=== PATIENT | male | born 1950 | race Caucasian/White ===

== ENCOUNTER 2024-02-05 12:31 | Emergency (ER) | payer BC, SELFPAY ==
[2024-02-05 12:31] VITALS: BMI 29.7
[2024-02-05 12:37] VITALS: BP 103/75
--- NOTE | 2024-02-05 14:22 | ED.GENMED ---
History of Present Illness
General
Chief Complaint: Male Genito-Urinary Symptoms
Source: patient
Exam Limitations: none
Time Seen by Provider: 02/05/24 14:09
Nursing documentation reviewed up to this point in time: agreed with
Travel History
Have you had any contact with someone who has COVID-19?: No
Do you have any symptoms of coronavirus? Fever > 100 degrees, chills, cough, shortness of breath, sore throat, loss of taste or smell, muscle aches, or headache?: No
History of Present Illness
History of Present Illness:
Patient is a 73-year-old male with past medical history of enlarged prostate, urinary retention hypertension presents to the ER for hematuria. Patient was out of town on Saturday, 4 days ago and had urinary retention went to a local ER and had a
catheter inserted. He saw urology nurse today at Dr. Carvalho office and had the David catheter removed. He urinated at 11 AM however he simply had blood and large blood clots. Since then he has been dripping blood. Urology, Dr. Robles did send
a note via [place] text requesting either an 18 or 20 Hungarian coud� and irrigation.
reports pt is very prone to UTI and had confusion with last episode.
Pt denies any associated fever/chills.
Patient denies any back pain nausea vomiting. He is on blood thinners.
Past History
Past History
ED Past Medical History: Other (Hypertension, hyperlipidemia, depression)
Social History
Tobacco: Non-smoker
Alcohol: Occasional
Family History
Family History: Other (History of cardiomyopathy)
Review of Systems
Review of Systems
Allergies reviewed?: Yes
All Other Systems: ROS reviewed and negative except as documented in HPI and ROS
Constitutional: Reports no symptoms; Denies fever, fatigue or chills
EENT: Reports no symptoms
Respiratory: Reports no symptoms
ABD/GI: Reports no symptoms; Denies abdominal pain, nausea or vomiting
: Reports other (hematuria )
Musculoskeletal: Reports no symptoms
Skin: Reports no symptoms
Neurological: Reports no symptoms
Psychiatric: Reports no symptoms
Phy Exam
General Physical Exam
General Presentation: no apparent distress
General age: appears stated age
General Skin: warm and dry
General Habitus: normal
General Mental: alert
General Hydration: appears well hydrated
Gastrointestinal Exam
Gastrointestinal Exam: non tender, soft and other (no suprapubic tenderness )
Neurological Exam
Neurological Exam: alert and oriented x3
Musculoskeletal Exam
Musculoskeletal Exam: full ROM
Skin Exam
Skin Exam: normal color and warm/dry
Psychiatric Exam
Psychiatric Exam: normal mood/affect
Course
Orders/Labs/Results
Orders:
Orders
02/05/24 14:21
Bladder Scan- Treatment ONCE
David Placement- Treatment ONCE
Reason for insertion: Acute Retention
02/05/24 14:28
Complete Blood Count/With Diff Urgent
Comprehensive Metabolic Panel Stat
02/05/24 15:20
Sulfamethox./Trimethoprim Ds [Bactrim Ds 800 mg/160 mg] 1 tablet PO NOW STA
02/05/24 15:23
UA Reflex to Culture [Urinalysis Reflex To Culture] Urgent
Date Specimen was Collected: 02/05/24
Time Specimen was Collected: 15:16
Urine Microscopic Reflex Cult Urgent
Abnormal Lab Results
02/05/24 02/05/24
14:28 15:23
Lymphocytes % 20.3 L %
(20.5-51.1)
Glucose 108 H mg/dl
(70-99)
Ur Occult Blood Reflex 4+ A
(Negative)
Urine Glucose Trace A
(Negative)
02/05/24 14:28
02/05/24 14:28
Vital Signs
Initial and Last Documented VS:
Initial Vital Signs
Temp Pulse Resp BP Pulse Ox
97.8 F 103 20 103/75 95
02/05/24 12:37 02/05/24 12:37 02/05/24 12:37 02/05/24 12:37 02/05/24 12:37
Last Documented Vital Signs
Temp Pulse Resp BP Pulse Ox
97.8 F 79 18 152/83 98
02/05/24 12:37 02/05/24 15:55 02/05/24 15:55 02/05/24 15:55 02/05/24 15:55
MDM/Problems Addressed
Differential Diagnosis Includes:
not limited to: hematuria UTI
MDM/Problems Addressed:
Patient is a 73-year-old male sent by urology for evaluation of hematuria since having David catheter removed this morning at urology office. As discussed with Dr. Robles he requested a coud� catheter either an 18 or 20 which was inserted by nurse
draining clear yellow urine. Patient with no obvious clots here in the ER or hematuria noted in the David bag he is afebrile no acute distress normal white count normal kidney function. Patient has had multiple UTIs in the past and with David
catheter changes and high risk infection as discussed with urology will DC on Bactrim. Patient is due to have cystoscopy on Saturday in 2 days in the office. Urology will plan to scope him and then replace David catheter plan is for prostate surgery
in the next 1 to 2 weeks if available
Chronic conditions affecting care:
frequent UTI
*Pulse Oximetry
Patient hypoxic: no
*Critical Care Note
Total Time (30-74mins, 75-104mins- exclusive of procedures): Not Applicable
ED Attending Note
-
Portions of this chart may have been created with voice recognition software.� Occasional wrong word or��sound alike� substitutions may have occurred due to the inherent limitations of voice recognition software.
Discharge Plan
Departure
Patient Disposition: Home (Routine Discharge)
Date of Disposition: 02/05/24
Time of Disposition: 16:23
Patient with high blood pressure during this ER visit?: Yes
Condition: Fair
Covid-19: Not Applicable
Discharge Problem:
Hematuria
Instructions: How to Care for Your David Catheter, Male, Blood in the Urine (Hematuria), Adult (DC)
Prescriptions:
New
sulfamethoxazole-trimethoprim [Bactrim DS] 800-160 mg tablet
1 tab PO Q12H Qty: 20 0RF
No Action
tamsulosin 0.4 MG capsule
0.4 mg PO DAILY Qty: 15 0RF
sulfamethoxazole-trimethoprim 1 TABLET tablet
1 tab PO BID Qty: 10 0RF
Referrals:
Rajesh Robles MD [Active] -
Larry Hawkins MD [Family Provider] -
Activity Restrictions/Additional Instructions:
As discussed a prescription for Bactrim was sent to your pharmacy take as directed once every 12 hours for the next 10 days. Follow-up with urology Dr. Robles as scheduled on Saturday for your cystoscopy and return of any worsening of symptoms
including blood in David catheter, abdominal pain nausea vomiting fever chills back pain.
Interventions
Interventions:
*Risk Screen - Suicide Last Done: 02/05/24 12:37
*General Assessment Last Done: 02/05/24 12:37
*Neglect/Abuse Screening Last Done: 02/05/24 12:37
ED- Fall Risk Assessment Last Done: 02/05/24 15:55
ED-Male Genitourinary Assessment Last Done: 02/05/24 14:34
Discharge Date and Time
Print Language: KHMER
[2024-02-05 14:35] LABS: % Basophils 0.8 % (0-2); % Eosinophils 1.1 % (0-6); % Immature Granulocytes 0.2 % (0-0.5); % Lymphocytes 20.3 % (20.5-51.1); % Monocytes 6.9 % (1.7-9.3); % Neutrophils 70.7 % (42.2-75.2); Absolute Basophils 0.1 10^3/uL (0-0.2); Absolute Eosinophils 0.1 10^3/uL (0-0.7); Absolute Lymphocytes 1.3 10^3/uL (1.2-3.4); Absolute Monocytes 0.4 10^3/uL (0.1-0.6); Absolute Neutrophils 4.5 10^3/uL (1.4-6.5); Hematocrit 45.7 % (39.0-52.0); Hemoglobin 15.1 g/dL (13.0-18.0); Mean Corpuscular Hgb 27.7 pg (27.0-31.0); Mean Corpuscular Volume 83.9 fL (80.0-94.0); Mean Platelet Volume 8.8 fL (7.4-10.4); Nucleated Red Blood Cells % 0 % (-); Platelet Count 229 10^3/uL (130-400); Red Blood Cell Count 5.45 10^6/uL (4.70-6.10); Red Cell Dist. Width 13.2 % (11.5-14.5); White Blood Cell Count 6.4 10^3/uL (4.8-10.8)
[2024-02-05 14:58] LABS: ALT (SGPT) 29 U/L (0-50); AST (SGOT) 29 U/L (17-59); Albumin 4.3 g/dl (3.5-5.0); Alkaline Phosphatase 39 U/L (38-126); Blood Urea Nitrogen 20 mg/dl (9-20); Calcium 9.7 mg/dl (8.4-10.2); Carbon Dioxide 26 mmol/L (22-30); Chloride 106 mmol/L (98-107); Glucose 108 mg/dl (70-99); Potassium 4.4 mmol/L (3.5-5.1); Sodium 138 mmol/L (135-145); Total Bilirubin 0.7 mg/dl (0.2-1.3); Total Protein 6.9 g/dl (6.3-8.2); eGFR > 60.00
[2024-02-05 15:53] LABS: Urine Albumin Negative (Neg - Trace); Urine Bilirubin Negative (Negative); Urine Character Clear (Clear); Urine Color Yellow; Urine Glucose Trace (Negative); Urine Ketone Negative (Negative); Urine Leukocyte Negative (Negative); Urine Nitrite Negative (Negative); Urine Occult Blood 4+ (Negative); Urine Urobilinogen Negative (Neg - 1+)
[2024-02-05 15:55] VITALS: BP 152/83
[2024-02-05] MEDS: BACTRIM DS 800 MG/160 MG 1 TABLET PO (16:01)
[2024-02-05 16:39] LABS: Urine Red Blood Cell 26-30 /HPF (0-2); Urine White Cell 0-2 /HPF (0-5)
== END 2024-02-05 16:38 | disposition home or self-care (01) ==
LOC: EMR 12:31
PROVIDERS: Nurse Practitioner; EMERGENCY PHYSICIAN Student in an Organized Health Care Education/Training Program; FAMILY PHYSICIAN Internal Medicine
DX: N40.1 Benign prostatic hyperplasia with lower urinary tract symptoms (principal); R31.9 Hematuria, unspecified; I10 Essential (primary) hypertension
CPT/HCPCS: 99283; 51798; 51702; 80053; 81003; 81015; 85025

== ENCOUNTER 2024-02-21 06:17 | Day surgery (SDC) | payer BC, SELFPAY ==
[2024-02-13 12:34] VITALS: BMI 28.8
[2024-02-13 14:01] LABS: INR 0.94; PT 12.6 Sec (11.4-14.6)
[2024-02-13 14:02] LABS: APTT 29.2 Sec (23.4-35.0)
--- NOTE | 2024-02-18 11:36 | CM ---
Patient is scheduled for a TURP on 02/21/24. Spoke with patient prior to surgery via telephone to complete case management assessment and assess for discharge planning needs. Patient reports that he lives with his and 14 year old daughter in a
two story home. There are three steps to enter and a flight of steps to the second floor. He currently functions independently. He has no DME and has never had VN services. He has a prescription plan and uses [facility] in [place].
PCP is Larry Hawkins
Discussed discharge plans. Patient plans to return home at discharge. He states that he will have support from his when he goes home. He has no discharge planning concerns at this time. Discussed possible need for VN services and patient does
not feel that these services will be needed. He states that he has a ann now and will be able to continue to manage this if ann is still needed at discharge.
[2024-02-21] VITALS (13 sets, daily range): BP systolic 124–166; BP diastolic 67–97
[2024-02-21] MEDS: NORMOSOL-R 1000 IV (13:23)
--- NOTE | 2024-02-21 16:50 | W.IMMPOSTOP ---
Surgical Immed Post Op Note
-
Primary Surgeon: Margaret
Pre-op Diagnosis: BPH with urinary retention
Post-op Diagnosis: Same
Procedure Performed: bipolar TURP (loop + plasma button vap)
Anesthesia Type: LMA
Specimen / Cultures: prostate chips/None
Estimated Blood Loss: 2 cc
Drains: 22Fr 3-way David catheter (30 cc in balloon)
Complications: None
Operative Findings: well-resected prostatic urethral channel down to capsule w/ open vesicoprostatic junction, resection from bladder neck down to verumontanum, no involvement of bilateral UOs, verumontanum, external urethral sphincter
[2024-02-21] MEDS: DILAUDID 0.25 MG IV (18:55)
--- NOTE | 2024-02-21 19:30 | PTCARENOTE ---
patient arrived s/p TURP to 2 south from PACU. CBI running per order, urine in ann is very light pink. Patient is AAOx3, no complaints of pain or discomfort at this time. Oriented to room and plan of care, assessment on going.
--- NOTE | 2024-02-21 20:00 | PTCARENOTE ---
traction tape released from patient at 2000 per order.
[2024-02-21] MEDS: FLOMAX 0.400000000000000022 MG PO (20:15)
[2024-02-22 03:25] VITALS: BP 144/82
--- NOTE | 2024-02-22 06:14 | PTCARENOTE ---
CBI clamped at 0600 per order. patient resting in bed comfortably.
[2024-02-22 07:00] VITALS: BP 114/63
[2024-02-22] MEDS: MAG-TAB SR 84 MG PO (08:22)
[2024-02-22] MEDS: THERAGRAN 1 TABLET PO (08:22)
[2024-02-22] MEDS: WELLBUTRIN XL (24 hour extended release) 300 MG PO (08:23)
[2024-02-22] MEDS: LIPITOR 10 MG PO (08:23)
[2024-02-22] MEDS: COZAAR 50 MG PO (08:23)
[2024-02-22] MEDS: FLOMAX 0.400000000000000022 MG PO (08:23)
[2024-02-22] MEDS: MOTRIN 800 MG PO (08:34)
[2024-02-22 08:48] LABS: % Basophils 0.2 % (0-2); % Eosinophils 0.1 % (0-6); % Immature Granulocytes 0.3 % (0-0.5); % Lymphocytes 12.3 % (20.5-51.1); % Neutrophils 83.1 % (42.2-75.2); Absolute Lymphocytes 1.2 10^3/uL (1.2-3.4); Absolute Monocytes 0.4 10^3/uL (0.1-0.6); Absolute Neutrophils 8.2 10^3/uL (1.4-6.5); Hemoglobin 14.5 g/dL (13.0-18.0); Mean Corp Hgb Conc. 34.5 g/dL (33.0-37.0); Mean Corpuscular Hgb 27.6 pg (27.0-31.0); Mean Platelet Volume 8.8 fL (7.4-10.4); Nucleated Red Blood Cells % 0 % (-); Platelet Count 275 10^3/uL (130-400); Red Blood Cell Count 5.25 10^6/uL (4.70-6.10); Red Cell Dist. Width 12.9 % (11.5-14.5); White Blood Cell Count 9.9 10^3/uL (4.8-10.8)
--- NOTE | 2024-02-22 08:52 | W.PN.URO.CBU ---
Today's Communication / Plan
-
D/c David catheter
TOV this AM w/ PVRs to ensure emptying prior to d/c
AM labs pending
Regular diet
D/w patient.
D/w RN.
Assessment / Plan
-
BPH with urinary retention
02/20: s/p TURP (loop/plasma button)
Diagnosis
-
Date of Service: February 22, 2024
-
Patient Diagnosis:
BPH with urinary retention
Elevated PSA (normal MRI prostate)
Post Op Day:
02/20: s/p TURP
Subjective
-
CBI clamped @0600 - urine aqueous and gale in tubing, no clots.
Tolerating diet.
Denies suprapubic/pelvic pain.
Objective
-
Vital Signs
Temp Pulse Resp BP Pulse Ox
98.3 F 76 16 114/63 95
02/22/24 07:00 02/22/24 07:00 02/22/24 07:00 02/22/24 07:00 02/22/24 07:00
Intake and Output
02/21/24 02/22/24 02/23/24
06:59 06:59 06:59
Intake Total 75 / 75
Output Total 3050 / 3050
Balance -2975 / -2975
Intake:
IV fluids (Total) 75 / 75
normosol 75 / 75
Output:
True Urine Output from CBI 3050 / 3050
Physical Exam
-
General - well developed, well nourished, no acute distress
Abdomen - soft, non-tender, no CVAT
Genitalia - normal
Skin - warm & dry with no rash
Neuro - AOx3, no motor deficits
Extremities - no clubbing, no cyanosis, no edema
Care Review
Data Reviewed
Discussed with: Nursing
--- NOTE | 2024-02-22 08:55 | W.DS.TRANS ---
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
-
Discharge Instructions:
Discharge Diagnosis/Procedures BPH with urinary retention
Diet Regular
Activity No strenuous activity
Additional Activity No strenuous activity, exercise ([employer]/golf),
or lifting >20 lbs for [address] Robles (
to minimize bleeding risk as prostate heals)
Driving Restrictions No driving for 24 hours
Bathing Restrictions None
Blood Work not applicable
Others Tests not applicable
Wound Care not applicable
Instructions:
Stand-Alone Forms:
Changes to Home Medications: No
Discharge Medications:
DC Medications w/original date entered in [facility]
Lipitor 1 dose PO DAILY 02/19/24
bupropion HCl 150 mg 24 hr tablet, extended release (Wellbutrin XL) 300 mg PO DAILY 02/19/24
losartan 50 mg tablet 50 mg PO DAILY 02/19/24
magnesium 1 dose PO DAILY 02/19/24
multivitamin 1 tab PO DAILY 02/19/24
omega 0-uxi-qdy-fish oil 1,200 mg (144 mg-216 mg) capsule (Fish Oil) 1 cap PO DAILY 02/19/24
tadalafil 5 mg tablet (Cialis) 5 mg PO DAILY 02/19/24
tamsulosin 0.4 mg capsule 0.4 mg PO BID 02/19/24
ciprofloxacin HCl 500 mg tablet 500 mg PO DAILY 5 days #5 tabs 02/22/24
finasteride 5 mg tablet 5 mg PO DAILY 90 days #90 tabs 02/22/24
phenazopyridine 200 mg tablet 200 mg PO BID PRN dysuria 4 days #8 tabs 02/22/24
Home Medication Changes
Pending Results: Yes
Additional Pending Results:
surgical pathology (prostate chips)
[2024-02-22 09:15] LABS: Blood Urea Nitrogen 18 mg/dl (9-20); Calcium 9.6 mg/dl (8.4-10.2); Carbon Dioxide 24 mmol/L (22-30); Chloride 103 mmol/L (98-107); Estimated Creatinine Clearance 84 ml/min; Glucose 144 mg/dl (70-99); Sodium 137 mmol/L (135-145); eGFR > 60.00
--- NOTE | 2024-02-22 11:04 | CM ---
Reviewed the chart notes. Patient to be discharged to home with no anticipated needs being identified at this time. Patient's family to transport home. CM continues to be available to patient/family and is monitoring medical plan for needs at
discharge.
Plan: Discharge to home today.
[2024-02-22 15:00] VITALS: BP 139/80
== END 2024-02-22 15:07 | disposition home or self-care (01) ==
LOC: SDS 06:17
PROVIDERS: ATTENDING PHYSICIAN Surgery; FAMILY PHYSICIAN Internal Medicine
DX: C61 Malignant neoplasm of prostate (principal); R33.8 Other retention of urine
CPT/HCPCS: 52601; 88305; 36415; 80048; 85025; 85610; 85730; 88344; 93005

== ENCOUNTER → 2024-05-01 06:17 | Day surgery (SDC) | payer OTHER, SELFPAY | LOC: GI 06:17 | PROVIDERS: ATTENDING PHYSICIAN Internal Medicine Gastroenterology; FAMILY PHYSICIAN Internal Medicine | DX: Z12.11 Encounter for screening for malignant neoplasm of colon (principal); R19.5 Other fecal abnormalities; K64.8 Other hemorrhoids; K57.30 Diverticulosis of large intestine without perforation or abscess without bleeding; K63.5 Polyp of colon | CPT/HCPCS: 45380; 88305 ==

== ENCOUNTER → 2024-08-17 10:43 | Outpatient (REF) | payer OTHER, SELFPAY | LOC: MRI 3T 10:43 | PROVIDERS: ATTENDING PHYSICIAN Surgery; FAMILY PHYSICIAN Internal Medicine | DX: C61 Malignant neoplasm of prostate (principal) | CPT/HCPCS: 72197; A9575 ==

== ENCOUNTER → 2025-09-08 15:04 | Outpatient (REF) | payer OTHER, SELFPAY | LOC: MRI 3T 15:04 | PROVIDERS: ATTENDING PHYSICIAN Surgery; FAMILY PHYSICIAN Internal Medicine | DX: R97.20 Elevated prostate specific antigen [PSA] (principal) | CPT/HCPCS: 72197; A9575 ==